=== PATIENT | female | born 1995 | race Caucasian/White ===

== ENCOUNTER 2024-03-19 18:26 | Emergency (ER) | payer MEDICAID ==
[~2024-03-19] VITALS: Ht 170.2 cm; Wt 61.2 kg
[2024-03-19 18:49] VITALS: BP_SYST 121; PULSE 95; RESP 18; TEMP 97; O2SAT 97
== END 2024-03-19 19:18 | disposition left against medical advice (07) ==
LOC: SED 18:26
DX: R22.0 Localized swelling, mass and lump, head (principal); Z53.21 Procedure and treatment not carried out due to patient leaving prior to being seen by health care provider